=== PATIENT | male | born 1975 | race African-American/Black ===

== ENCOUNTER 2020-09-17 20:06 | Inpatient (IN) | payer MEDICARE, MEDICAID ==
[~2020-09-17] VITALS: Ht 177.8 cm; Wt 98.3 kg
[~2020-09-17 20:06] MED LIST: ALBU17AE27
[2020-09-17] MEDS ORDERED: MethylPREDNISolone SOD SUCC 125 MG/2 ML VIAL IVP ONE (20:30)
[2020-09-17] MEDS ORDERED: ALBUTEROL SULFATE 5 MG/ML 20 ML NEB SOLN [BULK] NEB ONE (20:30)
[2020-09-17 20:33] LABS: SOURCE, BLOOD GAS ARTERIAL; TEMPERATURE, FAHRENHEIT, BG 97.6 FAHREN (96.0-98.6)
[2020-09-17 20:37] LABS: ABG BASE EXCESS -1.4 mmol/L (-2.0-3.0); ABG CARBOXYHEMOGLOBIN 1.8 % (0.0-1.5); ABG HCO3 22.9 mmol/L (22.0-26.0); ABG METHEMOGLOBIN 0.3 % (0.0-1.5); ABG OXYGEN CONTENT 17.4 mL/dL (15.0-23.0); ABG OXYGEN SATURATION 98.4 % (95.0-98.0); ABG OXYHEMOGLOBIN 96.3 % (94.0-100.0); ABG PCO2 50 mmHg (35-45); ABG PH 7.314 (7.35-7.450); ABG TOTAL HEMOGLOBIN 12.7 G/dL (12.0-18.0); PO2, ARTERIAL BG 119.7 mmHg (88.0-96.0)
[2020-09-17 20:38] LABS: SITE, BLOOD GAS LFT RADIAL
[2020-09-17 20:39] LABS: CPAP, BG 10 cm H2O; O2 DEVICE,BLOOD GAS CPAP (ROOM AIR)
[2020-09-17] MEDS ORDERED: 0.9% SODIUM CHLORIDE 5 ML NEB SOLUTION NEB ONE (20:55)
[2020-09-17 20:59] LABS: BASOPHILS % (AUTO) 0.6 % (0.0-2.0); EOSINOPHILS % (AUTO) 0 % (1.0-6.0); HEMATOCRIT 38.7 % (41-53); HEMOGLOBIN 12.3 g/dL (13.5-17.5); LYMPHOCYTES # (AUTO) 1.7 K/uL (1.0-4.8); LYMPHOCYTES % (AUTO) 25.7 % (22.0-44.0); MEAN CORPUSCULAR HEMOGLOBIN 29.7 pg (26.0-34.0); MEAN CORPUSCULAR HGB CONC 31.6 G/dL (31.0-37.0); MEAN CORPUSCULAR VOLUME 94 fL (80-100); MONOCYTES # (AUTO) 0.6 K/uL (0.1-1.0); MONOCYTES % (AUTO) 8.3 % (2.0-9.0); NEUTROPHILS # (AUTO) 4.4 K/uL (1.8-7.7); NEUTROPHILS % (AUTO) 65.4 % (40.0-70.0); PLATELET COUNT (AUTO) 289 K/uL (150-450); RED BLOOD CELL COUNT(AUTO) 4.13 MIL/uL (4.50-5.90); RED CELL DISTRIBUTION WIDTH 15.4 % (11.5-14.5)
[2020-09-17 21:06] LABS: ANION GAP 10 mmol/L (8-16); CALCIUM, TOTAL 8.7 mg/dL (8.8-10.5); CARBON DIOXIDE 27 mmol/L (22-29); CHLORIDE 103 mmol/L (98-107); CREATININE 1.31 mg/dL (0.60-1.30); GLOMERULAR FILTR. RATE CALC > 60 mL/min (>60); GLUCOSE,RANDOM 159 mg/dL (70-110); POTASSIUM 5.2 mmol/L (3.5-5.1); SODIUM SERUM 140 mmol/L (136-145); UREA NITROGEN, BLOOD 8 mg/dL (7-18)
[2020-09-17 21:20] LABS: B-TYPE NATRIURETIC PEPTIDE 543 pg/mL (0-100)
[2020-09-17 21:26] LABS: COVID AG,FIA SOURCE NASOPHARYNGEAL
[2020-09-17 21:30] LABS: ALANINE AMINOTRANSFERASE 39 U/L (12-78); ALBUMIN 3.6 g/dL (3.4-5.0); ALKALINE PHOSPHATASE 88 U/L (46-116); ASPARTATE AMINOTRANSFERASE 48 U/L (15-37); BILIRUBIN,TOTAL 0.4 mg/dL (0.1-1.0); CREATINE KINASE, TOTAL ONLY 231 U/L (39-308); TOTAL PROTEIN, SERUM 7.2 g/dL (6.4-8.2)
[2020-09-17] MEDS ORDERED: ALBUTEROL SULFATE HFA 90 MCG/PUFF 8 GM INHALER IH PRN (21:30)
[2020-09-17] MEDS ORDERED: IPRATROPIUM BROMIDE HFA 17 MCG/PUFF 12.9 GM INHALER IH PRN (21:30)
[2020-09-17] MEDS ORDERED: ONDANSETRON HCL 4 MG/2 ML VIAL IVP PRN (21:30)
[2020-09-17 21:37] LABS: LACTIC ACID 1.9 mmol/L (0.4-2.0)
[2020-09-17] MEDS ORDERED: UMEC62.5 IH (22:12)
[2020-09-17] MEDS ORDERED: MONT10TA32 PO (22:12)
[2020-09-17] MEDS ORDERED: HYDR-3421 PO (22:12)
[2020-09-17] MEDS ORDERED: LOSA100T58 PO (22:12)
[2020-09-17] MEDS: HEPARIN SODIUM,PORCINE 5,000 UNITS/ML VIAL SQ SCH (23:52)
[2020-09-17 23:54] LABS: ABG A-A DIFF O2 108.1 mmHg (10-20.0); ABG BASE EXCESS 0.5 mmol/L (-2.0-3.0); ABG CARBOXYHEMOGLOBIN 0.8 % (0.0-1.5); ABG HCO3 24.4 mmol/L (22.0-26.0); ABG METHEMOGLOBIN 0.3 % (0.0-1.5); ABG OXYGEN CONTENT 18.5 mL/dL (15.0-23.0); ABG OXYGEN SATURATION 99.8 % (95.0-98.0); ABG OXYHEMOGLOBIN 98.7 % (94.0-100.0); ABG PCO2 51 mmHg (35-45); ABG PH 7.332 (7.35-7.450); ABG TOTAL HEMOGLOBIN 12.9 G/dL (12.0-18.0); PO2, ARTERIAL BG 264.3 mmHg (88.0-96.0); SOURCE, BLOOD GAS ARTERIAL; TEMPERATURE, FAHRENHEIT, BG 97.9 FAHREN (96.0-98.6)
[2020-09-17 23:56] LABS: O2 DEVICE,BLOOD GAS BIPAP (ROOM AIR); SITE, BLOOD GAS LFT RADIAL
[2020-09-17 23:57] LABS: INSPIRATORY TIME, BG 0.9 SEC
[2020-09-17 23:57] LABS: AMPHET/METH SCREEN,URINE NEGATIVE (NEGATIVE); BARBITURATE SCREEN, URINE NEGATIVE (NEGATIVE); BENZODIAZEPINES SCREEN,URINE NEGATIVE (NEGATIVE); CANNABINOID SCREEN,URINE NEGATIVE (NEGATIVE); COCAINE SCREEN,URINE NEGATIVE (NEGATIVE); METHADONE SCREEN, URINE NEGATIVE (NEGATIVE); OPIATE SCREEN,URINE NEGATIVE (NEGATIVE)
[2020-09-17 23:58] LABS: SPONTANEOUS VT, BG 810 ml
[2020-09-17 23:58] LABS: PHENCYCLIDINE SCREEN,URINE NEGATIVE (NEGATIVE)
[2020-09-18] MEDS: HEPARIN SODIUM,PORCINE 5,000 UNITS/ML VIAL SQ SCH ×3 (08:10→23:09)
[2020-09-18] MEDS: MethylPREDNISolone SOD SUCC 125 MG/2 ML VIAL IVP SCH (08:10)
[2020-09-18] MEDS ORDERED: IPRATROPIUM BROMIDE 0.5 MG/2.5 ML NEB SOLUTION NEB SCH (08:30)
[2020-09-18] MEDS ORDERED: ALBUTEROL SULFATE 2.5 MG/0.5 ML NEB SOLUTION NEB SCH (08:30)
[2020-09-18 08:59] VITALS: BP 133/82
[2020-09-18] MEDS ORDERED: PNEUMOCOCCAL VACCINE POLYVALENT 0.5 ML VIAL [PPSV23] IM. ONE (10:45)
[2020-09-18 11:09] VITALS: BP 130/81
[2020-09-18] MEDS ORDERED: TIOT185 IH (11:24)
[2020-09-18] MEDS ORDERED: IPRA3AMP24 IH (11:24)
[2020-09-18] MEDS ORDERED: HYDR25TA2 PO (11:24)
[2020-09-18] MEDS ORDERED: MONT-35 PO (11:24)
[2020-09-18] MEDS: ALBUTEROL SULFATE 2.5 MG/0.5 ML NEB SOLUTION NEB SCH ×4 (11:54→23:21)
[2020-09-18] MEDS: IPRATROPIUM BROMIDE 0.5 MG/2.5 ML NEB SOLUTION NEB SCH ×4 (11:54→23:21)
[2020-09-18] MEDS ORDERED: FAMO10TA39 PO (12:03)
[2020-09-18] MEDS ORDERED: LORA-1001 PO (12:36)
[2020-09-18] MEDS ORDERED: THEO400T3 PO (12:36)
[2020-09-18] MEDS ORDERED: TRAZ150 PO (12:36)
[2020-09-18] MEDS: HYDROCHLOROTHIAZIDE 25 MG TABLET PO SCH (14:09)
[2020-09-18] MEDS: MONTELUKAST SODIUM 10 MG TABLET PO SCH (14:10)
[2020-09-18] MEDS: FAMOTIDINE 20 MG TABLET PO SCH (14:10)
[2020-09-18 15:40] VITALS: BP 135/91
[2020-09-18] MEDS: TIOTROPIUM BROMIDE 18 MCG/INH HANDIHALER [5] IH SCH (16:02)
[2020-09-18] MEDS: ACETAMINOPHEN 325 MG TABLET PO PRN (16:07)
[2020-09-18 19:58] VITALS: BP 112/74
[2020-09-19] VITALS (7 sets, daily range): BP systolic 106–128; BP diastolic 50–75
[2020-09-19] MEDS: ALBUTEROL SULFATE 2.5 MG/0.5 ML NEB SOLUTION NEB SCH ×5 (03:17→20:31)
[2020-09-19] MEDS: IPRATROPIUM BROMIDE 0.5 MG/2.5 ML NEB SOLUTION NEB SCH ×6 (03:17→23:53)
[2020-09-19] MEDS ORDERED: SODIUM CHLORIDE 3% 15 ML NEB SOLUTION NEB ONE (05:58)
[2020-09-19 06:09] LABS: INR 0.9 (0.9-1.1)
[2020-09-19] MEDS: MethylPREDNISolone SOD SUCC 125 MG/2 ML VIAL IVP SCH (07:59)
[2020-09-19] MEDS: TIOTROPIUM BROMIDE 18 MCG/INH HANDIHALER [5] IH SCH (08:02)
[2020-09-19] MEDS ORDERED: LIDOCAINE/PF 1% 30 ML VIAL ONE (08:12)
[2020-09-19] MEDS ORDERED: FentaNYL CITRATE PF 100 MCG/2 ML VIAL ONE (08:26)
[2020-09-19] MEDS ORDERED: MIDAZOLAM HCL 2 MG/2 ML VIAL ONE (08:26)
[2020-09-19] MEDS: THEOPHYLLINE 300 MG PO SCH (09:00)
[2020-09-19] MEDS ORDERED: FentaNYL CITRATE PF 100 MCG/2 ML VIAL IVP ONE ×2 (09:15→11:15)
[2020-09-19] MEDS ORDERED: MIDAZOLAM HCL 2 MG/2 ML VIAL IVP ONE ×2 (09:15→11:15)
[2020-09-19] MEDS: FAMOTIDINE 20 MG TABLET PO SCH (09:45)
[2020-09-19] MEDS: HEPARIN SODIUM,PORCINE 5,000 UNITS/ML VIAL SQ SCH ×3 (09:45→22:50)
[2020-09-19] MEDS: MONTELUKAST SODIUM 10 MG TABLET PO SCH (09:45)
[2020-09-19] MEDS: GuaiFENesin SR 600 MG ER TABLET PO SCH ×2 (10:35→20:17)
[2020-09-19] MEDS: HYDROCHLOROTHIAZIDE 25 MG TABLET PO SCH (10:35)
[2020-09-19] MEDS: FUROSEMIDE 20 MG/2 ML VIAL IVP SCH (16:38)
[2020-09-19] MEDS ORDERED: SODIUM CHLORIDE 0.9% 250 ML IV ONE ×2 (16:49→16:57)
[2020-09-19] MEDS: CefTRIAXone 1 GM/DEXTROSE 50 ML IV SCH (20:21)
[2020-09-19] MEDS: ACETAMINOPHEN 325 MG TABLET PO PRN (22:56)
[2020-09-19] MEDS: ALBUTEROL SULFATE 2.5 MG/0.5 ML NEB SOLUTION NEB PRN (23:53)
[2020-09-20] MEDS: ALBUTEROL SULFATE 2.5 MG/0.5 ML NEB SOLUTION NEB PRN ×2 (03:45→23:01)
[2020-09-20] MEDS: IPRATROPIUM BROMIDE 0.5 MG/2.5 ML NEB SOLUTION NEB SCH ×6 (03:45→23:00)
[2020-09-20 04:00] VITALS: BP 112/70
[2020-09-20] MEDS: ACETAMINOPHEN 325 MG TABLET PO PRN ×2 (06:17→20:23)
[2020-09-20 06:30] LABS: BASOPHILS % (AUTO) 0.5 % (0.0-2.0); EOSINOPHILS % (AUTO) 0 % (1.0-6.0); HEMATOCRIT 36.4 % (41-53); HEMOGLOBIN 11.7 g/dL (13.5-17.5); LYMPHOCYTES # (AUTO) 1.1 K/uL (1.0-4.8); LYMPHOCYTES % (AUTO) 7.2 % (22.0-44.0); MEAN CORPUSCULAR HEMOGLOBIN 29.9 pg (26.0-34.0); MEAN CORPUSCULAR HGB CONC 32.2 G/dL (31.0-37.0); MEAN CORPUSCULAR VOLUME 93 fL (80-100); MONOCYTES # (AUTO) 1.5 K/uL (0.1-1.0); MONOCYTES % (AUTO) 9.4 % (2.0-9.0); NEUTROPHILS # (AUTO) 13.2 K/uL (1.8-7.7); NEUTROPHILS % (AUTO) 82.9 % (40.0-70.0); PLATELET COUNT (AUTO) 295 K/uL (150-450); RED BLOOD CELL COUNT(AUTO) 3.92 MIL/uL (4.50-5.90); RED CELL DISTRIBUTION WIDTH 15.3 % (11.5-14.5)
[2020-09-20 06:53] LABS: ANION GAP 5 mmol/L (8-16); CALCIUM, TOTAL 9.3 mg/dL (8.8-10.5); CARBON DIOXIDE 31 mmol/L (22-29); CHLORIDE 102 mmol/L (98-107); CREATININE 1.16 mg/dL (0.60-1.30); GLOMERULAR FILTR. RATE CALC > 60 mL/min (>60); GLUCOSE,RANDOM 99 mg/dL (70-110); POTASSIUM 3.8 mmol/L (3.5-5.1); SODIUM SERUM 138 mmol/L (136-145); UREA NITROGEN, BLOOD 15 mg/dL (7-18)
[2020-09-20] MEDS: HEPARIN SODIUM,PORCINE 5,000 UNITS/ML VIAL SQ SCH ×3 (08:00→23:15)
[2020-09-20] MEDS: ALBUTEROL SULFATE 2.5 MG/0.5 ML NEB SOLUTION NEB SCH ×3 (08:02→19:49)
[2020-09-20 08:16] VITALS: BP 118/75
[2020-09-20] MEDS: HYDROCHLOROTHIAZIDE 25 MG TABLET PO SCH (09:00)
[2020-09-20] MEDS: TIOTROPIUM BROMIDE 18 MCG/INH HANDIHALER [5] IH SCH (09:00)
[2020-09-20] MEDS: THEOPHYLLINE 300 MG PO SCH (09:00)
[2020-09-20] MEDS: GuaiFENesin SR 600 MG ER TABLET PO SCH ×2 (09:00→20:00)
[2020-09-20] MEDS: FUROSEMIDE 20 MG/2 ML VIAL IVP SCH (09:00)
[2020-09-20] MEDS: MONTELUKAST SODIUM 10 MG TABLET PO SCH (09:00)
[2020-09-20] MEDS: MethylPREDNISolone SOD SUCC 125 MG/2 ML VIAL IVP SCH ×2 (09:00→23:24)
[2020-09-20] MEDS: FAMOTIDINE 20 MG TABLET PO SCH (09:00)
[2020-09-20 11:01] VITALS: BP 109/76
[2020-09-20] MEDS: CefTRIAXone 1 GM/DEXTROSE 50 ML IV SCH (15:15)
[2020-09-20 15:54] VITALS: BP 125/81
[2020-09-20 19:40] VITALS: BP 127/72
[2020-09-21 00:05] VITALS: BP 132/73
[2020-09-21] MEDS: IPRATROPIUM BROMIDE 0.5 MG/2.5 ML NEB SOLUTION NEB SCH ×6 (03:20→23:00)
[2020-09-21] MEDS: ALBUTEROL SULFATE 2.5 MG/0.5 ML NEB SOLUTION NEB PRN ×2 (03:21→10:09)
[2020-09-21] MEDS: ACETAMINOPHEN 325 MG TABLET PO PRN ×3 (03:42→19:43)
[2020-09-21] MEDS: MethylPREDNISolone SOD SUCC 125 MG/2 ML VIAL IVP SCH ×4 (05:16→23:44)
[2020-09-21 06:01] LABS: BASOPHILS % (AUTO) 0.4 % (0.0-2.0); EOSINOPHILS % (AUTO) 0 % (1.0-6.0); HEMATOCRIT 40.1 % (41-53); HEMOGLOBIN 12.5 g/dL (13.5-17.5); LYMPHOCYTES # (AUTO) 0.4 K/uL (1.0-4.8); LYMPHOCYTES % (AUTO) 2.6 % (22.0-44.0); MEAN CORPUSCULAR HEMOGLOBIN 29.3 pg (26.0-34.0); MEAN CORPUSCULAR HGB CONC 31.3 G/dL (31.0-37.0); MEAN CORPUSCULAR VOLUME 94 fL (80-100); MONOCYTES # (AUTO) 0.5 K/uL (0.1-1.0); MONOCYTES % (AUTO) 3.8 % (2.0-9.0); NEUTROPHILS # (AUTO) 13.2 K/uL (1.8-7.7); PLATELET COUNT (AUTO) 303 K/uL (150-450); RED BLOOD CELL COUNT(AUTO) 4.28 MIL/uL (4.50-5.90)
[2020-09-21 06:03] LABS: NEUTROPHILS % (AUTO) 93.2 % (40.0-70.0)
[2020-09-21 06:25] LABS: ANION GAP 7 mmol/L (8-16); CALCIUM, TOTAL 9.7 mg/dL (8.8-10.5); CARBON DIOXIDE 32 mmol/L (22-29); CHLORIDE 99 mmol/L (98-107); CREATININE 1.03 mg/dL (0.60-1.30); GLOMERULAR FILTR. RATE CALC > 60 mL/min (>60); GLUCOSE,RANDOM 140 mg/dL (70-110); POTASSIUM 4.3 mmol/L (3.5-5.1); SODIUM SERUM 138 mmol/L (136-145); UREA NITROGEN, BLOOD 15 mg/dL (7-18)
[2020-09-21] MEDS: ALBUTEROL SULFATE 2.5 MG/0.5 ML NEB SOLUTION NEB SCH ×3 (07:18→19:38)
[2020-09-21 07:42] VITALS: BP 137/94
[2020-09-21] MEDS: FUROSEMIDE 20 MG/2 ML VIAL IVP SCH (09:48)
[2020-09-21] MEDS: FAMOTIDINE 20 MG TABLET PO SCH (09:48)
[2020-09-21] MEDS: HEPARIN SODIUM,PORCINE 5,000 UNITS/ML VIAL SQ SCH ×3 (09:48→23:43)
[2020-09-21] MEDS: GuaiFENesin SR 600 MG ER TABLET PO SCH ×2 (09:48→19:44)
[2020-09-21] MEDS: HYDROCHLOROTHIAZIDE 25 MG TABLET PO SCH (09:49)
[2020-09-21] MEDS: THEOPHYLLINE 300 MG PO SCH (09:49)
[2020-09-21] MEDS: MONTELUKAST SODIUM 10 MG TABLET PO SCH (09:49)
[2020-09-21] MEDS: TIOTROPIUM BROMIDE 18 MCG/INH HANDIHALER [5] IH SCH (09:49)
[2020-09-21 11:37] VITALS: BP 140/70
[2020-09-21 15:25] VITALS: BP 121/71
[2020-09-21] MEDS: CefTRIAXone 1 GM/DEXTROSE 50 ML IV SCH (16:24)
[2020-09-21 19:32] VITALS: BP 126/74
[2020-09-22 00:02] VITALS: BP 125/83
[2020-09-22 04:43] VITALS: BP 124/91
[2020-09-22] MEDS: MethylPREDNISolone SOD SUCC 125 MG/2 ML VIAL IVP SCH ×4 (05:07→23:42)
[2020-09-22] MEDS: ACETAMINOPHEN 325 MG TABLET PO PRN ×3 (05:43→20:29)
[2020-09-22] MEDS: ALBUTEROL SULFATE 2.5 MG/0.5 ML NEB SOLUTION NEB PRN (06:09)
[2020-09-22] MEDS: IPRATROPIUM BROMIDE 0.5 MG/2.5 ML NEB SOLUTION NEB SCH ×6 (06:09→23:01)
[2020-09-22 07:14] LABS: BASOPHILS % (AUTO) 0.2 % (0.0-2.0); EOSINOPHILS % (AUTO) 0 % (1.0-6.0); HEMOGLOBIN 12.6 g/dL (13.5-17.5); LYMPHOCYTES # (AUTO) 0.4 K/uL (1.0-4.8); LYMPHOCYTES % (AUTO) 2.5 % (22.0-44.0); MEAN CORPUSCULAR HEMOGLOBIN 29.4 pg (26.0-34.0); MEAN CORPUSCULAR HGB CONC 31.5 G/dL (31.0-37.0); MEAN CORPUSCULAR VOLUME 93 fL (80-100); MONOCYTES # (AUTO) 1.1 K/uL (0.1-1.0); MONOCYTES % (AUTO) 6.5 % (2.0-9.0); NEUTROPHILS # (AUTO) 15.1 K/uL (1.8-7.7); PLATELET COUNT (AUTO) 320 K/uL (150-450); RED BLOOD CELL COUNT(AUTO) 4.28 MIL/uL (4.50-5.90); RED CELL DISTRIBUTION WIDTH 15.2 % (11.5-14.5)
[2020-09-22 07:17] LABS: NEUTROPHILS % (AUTO) 90.8 % (40.0-70.0)
[2020-09-22 07:37] VITALS: BP 135/92
[2020-09-22 07:47] LABS: ANION GAP 8 mmol/L (8-16); CALCIUM, TOTAL 9.7 mg/dL (8.8-10.5); CARBON DIOXIDE 34 mmol/L (22-29); CHLORIDE 97 mmol/L (98-107); GLOMERULAR FILTR. RATE CALC > 60 mL/min (>60); GLUCOSE,RANDOM 168 mg/dL (70-110); POTASSIUM 3.8 mmol/L (3.5-5.1); SODIUM SERUM 139 mmol/L (136-145); UREA NITROGEN, BLOOD 16 mg/dL (7-18)
[2020-09-22] MEDS: HEPARIN SODIUM,PORCINE 5,000 UNITS/ML VIAL SQ SCH ×3 (08:43→23:43)
[2020-09-22] MEDS: GuaiFENesin SR 600 MG ER TABLET PO SCH ×2 (08:45→20:28)
[2020-09-22] MEDS: FAMOTIDINE 20 MG TABLET PO SCH (08:45)
[2020-09-22] MEDS: HYDROCHLOROTHIAZIDE 25 MG TABLET PO SCH (08:45)
[2020-09-22] MEDS: MONTELUKAST SODIUM 10 MG TABLET PO SCH (08:45)
[2020-09-22] MEDS: THEOPHYLLINE 300 MG PO SCH (08:45)
[2020-09-22] MEDS: FUROSEMIDE 20 MG/2 ML VIAL IVP SCH (08:45)
[2020-09-22] MEDS: TIOTROPIUM BROMIDE 18 MCG/INH HANDIHALER [5] IH SCH (08:46)
[2020-09-22] MEDS: ALBUTEROL SULFATE 2.5 MG/0.5 ML NEB SOLUTION NEB SCH ×4 (09:00→23:01)
[2020-09-22 11:39] VITALS: BP 125/88
[2020-09-22] MEDS ORDERED: HYDR-3421 PO (15:14)
[2020-09-22] MEDS ORDERED: ALBU8HFA IH (15:14)
[2020-09-22] MEDS ORDERED: UMEC62.5 IH (15:14)
[2020-09-22] MEDS ORDERED: THEO300T52 PO (15:14)
[2020-09-22] MEDS ORDERED: FAMO20 PO (15:14)
[2020-09-22] MEDS ORDERED: PRED20 PO (15:14)
[2020-09-22] MEDS ORDERED: LOSA100T58 PO (15:14)
[2020-09-22 15:26] VITALS: BP 126/77
[2020-09-22] MEDS: CefTRIAXone 1 GM/DEXTROSE 50 ML IV SCH (15:48)
[2020-09-22 19:46] VITALS: BP 126/74
[2020-09-23 00:17] VITALS: BP 115/73
[2020-09-23] MEDS: IPRATROPIUM BROMIDE 0.5 MG/2.5 ML NEB SOLUTION NEB SCH ×6 (03:00→23:32)
[2020-09-23] MEDS: ALBUTEROL SULFATE 2.5 MG/0.5 ML NEB SOLUTION NEB SCH ×6 (03:00→23:32)
[2020-09-23 04:25] VITALS: BP 123/82
[2020-09-23] MEDS: MethylPREDNISolone SOD SUCC 125 MG/2 ML VIAL IVP SCH ×3 (05:26→17:14)
[2020-09-23] MEDS: ACETAMINOPHEN 325 MG TABLET PO PRN (05:26)
[2020-09-23 07:40] VITALS: BP 121/75
[2020-09-23] MEDS: THEOPHYLLINE ANHYDROUS 300 MG PO SCH (08:19)
[2020-09-23] MEDS: HYDROCHLOROTHIAZIDE 25 MG TABLET PO SCH (08:20)
[2020-09-23] MEDS: FUROSEMIDE 20 MG/2 ML VIAL IVP SCH (08:22)
[2020-09-23] MEDS: FAMOTIDINE 20 MG TABLET PO SCH (08:22)
[2020-09-23] MEDS: GuaiFENesin SR 600 MG ER TABLET PO SCH ×2 (08:22→20:17)
[2020-09-23] MEDS: MONTELUKAST SODIUM 10 MG TABLET PO SCH (08:22)
[2020-09-23] MEDS: HEPARIN SODIUM,PORCINE 5,000 UNITS/ML VIAL SQ SCH ×2 (08:22→17:14)
[2020-09-23] MEDS: TIOTROPIUM BROMIDE 18 MCG/INH HANDIHALER [5] IH SCH (08:24)
[2020-09-23 12:07] VITALS: BP 125/68
[2020-09-23] MEDS ORDERED: IOVERSOL 350 MG/ML 100 ML VIAL ONE (12:57)
[2020-09-23] MEDS ORDERED: SODIUM CHLORIDE 0.9% 100 ML ONE (12:57)
[2020-09-23] MEDS: OxyCODONE HCL/ACETAMINOPHEN 5-325 MG TABLET PO PRN (13:06)
[2020-09-23] MEDS ORDERED: GADOTERATE MEGLUMINE 10 MMOL/20 ML VIAL IVP ONE (15:15)
[2020-09-23 15:27] VITALS: BP 132/68
[2020-09-23] MEDS: CefTRIAXone 1 GM/DEXTROSE 50 ML IV SCH (15:47)
[2020-09-23 19:53] VITALS: BP 120/73
[2020-09-24] VITALS (7 sets, daily range): BP systolic 114–145; BP diastolic 70–92
[2020-09-24] MEDS: HEPARIN SODIUM,PORCINE 5,000 UNITS/ML VIAL SQ SCH ×3 (00:32→15:56)
[2020-09-24] MEDS: MethylPREDNISolone SOD SUCC 40 MG/ML VIAL IVP SCH ×4 (00:32→18:00)
[2020-09-24] MEDS: ALBUTEROL SULFATE 2.5 MG/0.5 ML NEB SOLUTION NEB SCH ×6 (04:10→23:15)
[2020-09-24] MEDS: IPRATROPIUM BROMIDE 0.5 MG/2.5 ML NEB SOLUTION NEB SCH ×6 (04:10→23:15)
[2020-09-24] MEDS: OxyCODONE HCL/ACETAMINOPHEN 5-325 MG TABLET PO PRN ×2 (06:34→21:48)
[2020-09-24] MEDS: FUROSEMIDE 20 MG/2 ML VIAL IVP SCH (09:26)
[2020-09-24] MEDS: HYDROCHLOROTHIAZIDE 25 MG TABLET PO SCH (09:27)
[2020-09-24] MEDS: GuaiFENesin SR 600 MG ER TABLET PO SCH ×2 (09:27→22:18)
[2020-09-24] MEDS: FAMOTIDINE 20 MG TABLET PO SCH (09:27)
[2020-09-24] MEDS: MONTELUKAST SODIUM 10 MG TABLET PO SCH (09:28)
[2020-09-24] MEDS: THEOPHYLLINE ANHYDROUS 300 MG PO SCH (09:28)
[2020-09-24] MEDS: ACETAMINOPHEN 325 MG TABLET PO PRN (10:54)
[2020-09-24] MEDS: CefTRIAXone 1 GM/DEXTROSE 50 ML IV SCH (15:56)
[2020-09-25] MEDS: IPRATROPIUM BROMIDE 0.5 MG/2.5 ML NEB SOLUTION NEB SCH ×6 (02:46→22:55)
[2020-09-25] MEDS: ALBUTEROL SULFATE 2.5 MG/0.5 ML NEB SOLUTION NEB SCH ×6 (02:47→22:55)
[2020-09-25] MEDS: MethylPREDNISolone SOD SUCC 40 MG/ML VIAL IVP SCH ×5 (03:29→23:25)
[2020-09-25 03:56] VITALS: BP 128/80
[2020-09-25 06:12] LABS: HEMATOCRIT 40.3 % (41-53); HEMOGLOBIN 12.8 g/dL (13.5-17.5); MEAN CORPUSCULAR HEMOGLOBIN 29.4 pg (26.0-34.0); MEAN CORPUSCULAR HGB CONC 31.7 G/dL (31.0-37.0); MEAN CORPUSCULAR VOLUME 93 fL (80-100); PLATELET COUNT (AUTO) 376 K/uL (150-450); RED BLOOD CELL COUNT(AUTO) 4.35 MIL/uL (4.50-5.90); RED CELL DISTRIBUTION WIDTH 14.7 % (11.5-14.5)
[2020-09-25 06:33] LABS: ANION GAP 6 mmol/L (8-16); CALCIUM, TOTAL 9.1 mg/dL (8.8-10.5); CARBON DIOXIDE 32 mmol/L (22-29); CHLORIDE 98 mmol/L (98-107); CREATININE 1.17 mg/dL (0.60-1.30); GLOMERULAR FILTR. RATE CALC > 60 mL/min (>60); GLUCOSE,RANDOM 195 mg/dL (70-110); POTASSIUM 3.9 mmol/L (3.5-5.1); SODIUM SERUM 136 mmol/L (136-145); UREA NITROGEN, BLOOD 29 mg/dL (7-18)
[2020-09-25 07:43] VITALS: BP 116/78
[2020-09-25] MEDS: HEPARIN SODIUM,PORCINE 5,000 UNITS/ML VIAL SQ SCH ×4 (08:12→23:25)
[2020-09-25] MEDS: TIOTROPIUM BROMIDE 18 MCG/INH HANDIHALER [5] IH SCH ×2 (08:12→10:26)
[2020-09-25] MEDS: THEOPHYLLINE ANHYDROUS 300 MG PO SCH (08:13)
[2020-09-25] MEDS: MONTELUKAST SODIUM 10 MG TABLET PO SCH (08:13)
[2020-09-25] MEDS: FUROSEMIDE 20 MG/2 ML VIAL IVP SCH (08:13)
[2020-09-25 08:18] LABS: BAND NEUTROPHILS % (MANUAL) 2 % (0-5); EOSINOPHILS % (MANUAL) 1 % (1-6); LYMPHOCYTES % (MANUAL) 4 % (22-44); METAMYELOCYTES % 1 % (0-0); MONOCYTES % (MANUAL) 13 % (2-9); SEGMENTED NEUTROPHILS % 79 % (40-70)
[2020-09-25] MEDS: HYDROCHLOROTHIAZIDE 25 MG TABLET PO SCH (08:18)
[2020-09-25] MEDS: GuaiFENesin SR 600 MG ER TABLET PO SCH ×2 (08:18→20:01)
[2020-09-25] MEDS: FAMOTIDINE 20 MG TABLET PO SCH (08:18)
[2020-09-25] MEDS: OxyCODONE HCL/ACETAMINOPHEN 5-325 MG TABLET PO PRN ×2 (08:22→20:01)
[2020-09-25 11:29] VITALS: BP 127/77
[2020-09-25] MEDS: CefTRIAXone 1 GM/DEXTROSE 50 ML IV SCH (15:30)
[2020-09-25 16:45] VITALS: BP 103/83
[2020-09-25 19:55] VITALS: BP 121/76
[2020-09-26 00:20] VITALS: BP 122/81
[2020-09-26] MEDS: ALBUTEROL SULFATE 2.5 MG/0.5 ML NEB SOLUTION NEB SCH ×5 (03:20→20:43)
[2020-09-26] MEDS: IPRATROPIUM BROMIDE 0.5 MG/2.5 ML NEB SOLUTION NEB SCH ×5 (03:20→20:43)
[2020-09-26 05:05] VITALS: BP 113/64
[2020-09-26 06:02] LABS: BASOPHILS % (AUTO) 0.1 % (0.0-2.0); EOSINOPHILS % (AUTO) 0 % (1.0-6.0); HEMATOCRIT 40.8 % (41-53); HEMOGLOBIN 12.9 g/dL (13.5-17.5); LYMPHOCYTES # (AUTO) 0.6 K/uL (1.0-4.8); LYMPHOCYTES % (AUTO) 2.2 % (22.0-44.0); MEAN CORPUSCULAR HEMOGLOBIN 29.5 pg (26.0-34.0); MEAN CORPUSCULAR HGB CONC 31.6 G/dL (31.0-37.0); MEAN CORPUSCULAR VOLUME 93 fL (80-100); MONOCYTES # (AUTO) 1.4 K/uL (0.1-1.0); MONOCYTES % (AUTO) 5.4 % (2.0-9.0); PLATELET COUNT (AUTO) 373 K/uL (150-450); RED BLOOD CELL COUNT(AUTO) 4.37 MIL/uL (4.50-5.90); RED CELL DISTRIBUTION WIDTH 14.8 % (11.5-14.5)
[2020-09-26] MEDS: MethylPREDNISolone SOD SUCC 40 MG/ML VIAL IVP SCH (06:18)
[2020-09-26] MEDS: ACETAMINOPHEN 325 MG TABLET PO PRN ×3 (06:19→15:25)
[2020-09-26 06:28] LABS: ALANINE AMINOTRANSFERASE 45 U/L (12-78); ALBUMIN 3.7 g/dL (3.4-5.0); ALKALINE PHOSPHATASE 81 U/L (46-116); ANION GAP 8 mmol/L (8-16); ASPARTATE AMINOTRANSFERASE 14 U/L (15-37); BILIRUBIN,TOTAL 0.2 mg/dL (0.1-1.0); CALCIUM, TOTAL 8.8 mg/dL (8.8-10.5); CARBON DIOXIDE 31 mmol/L (22-29); CHLORIDE 99 mmol/L (98-107); CREATININE 1.11 mg/dL (0.60-1.30); GLOMERULAR FILTR. RATE CALC > 60 mL/min (>60); GLUCOSE,RANDOM 246 mg/dL (70-110); POTASSIUM 4.5 mmol/L (3.5-5.1); SODIUM SERUM 138 mmol/L (136-145); TOTAL PROTEIN, SERUM 6.9 g/dL (6.4-8.2); UREA NITROGEN, BLOOD 26 mg/dL (7-18)
[2020-09-26 06:59] LABS: NEUTROPHILS % (AUTO) 92.3 % (40.0-70.0)
[2020-09-26] MEDS: MONTELUKAST SODIUM 10 MG TABLET PO SCH (08:24)
[2020-09-26] MEDS: HYDROCHLOROTHIAZIDE 25 MG TABLET PO SCH (08:24)
[2020-09-26] MEDS: GuaiFENesin SR 600 MG ER TABLET PO SCH ×2 (08:24→20:12)
[2020-09-26] MEDS: THEOPHYLLINE ANHYDROUS 300 MG PO SCH (08:24)
[2020-09-26] MEDS: HEPARIN SODIUM,PORCINE 5,000 UNITS/ML VIAL SQ SCH ×2 (08:24→18:19)
[2020-09-26] MEDS: FAMOTIDINE 20 MG TABLET PO SCH (08:31)
[2020-09-26] MEDS: FUROSEMIDE 20 MG/2 ML VIAL IVP SCH (08:31)
[2020-09-26] MEDS: TIOTROPIUM BROMIDE 18 MCG/INH HANDIHALER [5] IH SCH (08:33)
[2020-09-26 09:58] VITALS: BP 135/97
[2020-09-26] MEDS: PredniSONE 20 MG TABLET PO SCH (10:40)
[2020-09-26 11:45] VITALS: BP 136/91
[2020-09-26] MEDS: CefTRIAXone 1 GM/DEXTROSE 50 ML IV SCH (15:25)
[2020-09-26] MEDS: OxyCODONE HCL/ACETAMINOPHEN 5-325 MG TABLET PO PRN (15:28)
[2020-09-26 15:49] VITALS: BP 140/88
[2020-09-26 20:20] VITALS: BP 113/65
[2020-09-27] MEDS: IPRATROPIUM BROMIDE 0.5 MG/2.5 ML NEB SOLUTION NEB SCH ×5 (00:10→15:19)
[2020-09-27] MEDS: ALBUTEROL SULFATE 2.5 MG/0.5 ML NEB SOLUTION NEB SCH ×5 (00:11→15:19)
[2020-09-27 00:36] VITALS: BP 126/96
[2020-09-27] MEDS: OxyCODONE HCL/ACETAMINOPHEN 5-325 MG TABLET PO PRN ×2 (02:47→10:00)
[2020-09-27 04:39] VITALS: BP 140/98
[2020-09-27] MEDS ORDERED: OxyCODONE HCL/ACETAMINOPHEN 5-325 MG TABLET PO ONE (05:00)
[2020-09-27 07:56] VITALS: BP 132/95
[2020-09-27] MEDS: GuaiFENesin SR 600 MG ER TABLET PO SCH (08:06)
[2020-09-27] MEDS: THEOPHYLLINE ANHYDROUS 300 MG PO SCH (08:06)
[2020-09-27] MEDS: HEPARIN SODIUM,PORCINE 5,000 UNITS/ML VIAL SQ SCH ×3 (08:07→15:43)
[2020-09-27] MEDS: PredniSONE 20 MG TABLET PO SCH (08:07)
[2020-09-27] MEDS: FAMOTIDINE 20 MG TABLET PO SCH (08:07)
[2020-09-27] MEDS: TIOTROPIUM BROMIDE 18 MCG/INH HANDIHALER [5] IH SCH (08:07)
[2020-09-27] MEDS: HYDROCHLOROTHIAZIDE 25 MG TABLET PO SCH (08:07)
[2020-09-27] MEDS: MONTELUKAST SODIUM 10 MG TABLET PO SCH (08:07)
[2020-09-27] MEDS: FUROSEMIDE 20 MG/2 ML VIAL IVP SCH (08:07)
[2020-09-27] MEDS: ACETAMINOPHEN 325 MG TABLET PO PRN (08:11)
[2020-09-27 12:03] VITALS: BP 130/86
[2020-09-27] MEDS ORDERED: PRED20 PO (13:22)
[2020-09-27] MEDS ORDERED: FURO20 PO (13:22)
[2020-09-27] MEDS: CefTRIAXone 1 GM/DEXTROSE 50 ML IV SCH (15:42)
== END 2020-09-27 17:00 | disposition home or self-care (01) | DRG 180 ==
LOC: EMS 20:12 → 5S 21:00 → UNDOADMIN 21:00 → 5S 23:00
PROVIDERS: ADMIT Internal Medicine; ATTEND Internal Medicine
PROC: 5A09457 Assistance with Respiratory Ventilation, 24-96 Consecutive Hours, Continuous Positive Airway Pressure (ICD-10-PCS; 2020-09-17)
PROC: 0BBG3ZX Excision of Left Upper Lung Lobe, Percutaneous Approach, Diagnostic (ICD-10-PCS; principal; 2020-09-19)
DX: C34.12 Malignant neoplasm of upper lobe, left bronchus or lung (principal); J96.02 Acute respiratory failure with hypercapnia; I50.21 Acute systolic (congestive) heart failure; J45.901 Unspecified asthma with (acute) exacerbation; N17.9 Acute kidney failure, unspecified; E87.2 Acidosis; E87.5 Hyperkalemia; F12.90 Cannabis use, unspecified, uncomplicated; I11.0 Hypertensive heart disease with heart failure; F19.10 Other psychoactive substance abuse, uncomplicated; F41.9 Anxiety disorder, unspecified; Z82.5 Family history of asthma and other chronic lower respiratory diseases; Z87.891 Personal history of nicotine dependence; R91.8 Other nonspecific abnormal finding of lung field; Z80.0 Family history of malignant neoplasm of digestive organs; Z82.49 Family history of ischemic heart disease and other diseases of the circulatory system; Z87.01 Personal history of pneumonia (recurrent); M54.5 Low back pain; Z20.822 Contact with and (suspected) exposure to COVID-19
CPT/HCPCS: 36600; 70553; 71045; 71250; 74177; 80048; 80053; 82550; 82805; 83605; 83880; 84484; 85025; 85610; 85730; 86635; 87040; 87070; 87205; 87426; 88305; 88341; 88342; 93005; 93306; 94640; 94644; 94660; 99242; 99285; A9575; G0378; J0696; J1644; J1940; J2250; J2920; J2930; J3010; J3490; J3535; J7050; 36415-L1; 36415-TC; J7611; J7613